=== PATIENT | female | born 1985 | race American Indian/Alaskan Native ===

== ENCOUNTER 2020-05-29 22:37 | Emergency (ER) | payer SELFPAY ==
[2020-05-29] MEDS ORDERED: ACETAMINOPHEN W/CODEINE 300-30 MG TAB PO ONE (23:23)
--- NOTE | 2020-05-29 23:24 | Emergency Department Report ---
ED Extremity Problem HPI - General Chief complaint: Extremity Injury, Upper Stated complaint: LT ARM/WRIST INJURY Source: patient Mode of arrival: Ambulatory Limitations: No Limitations - History of Present Illness Initial comments: This is a 35-year-old female presents to ED complaining of left hand and wrist pain status post falling while skating about 30 minutes prior to arrival to the ED. Patient states she was skating when she accidentally tripped and landed on her left side. Patient is complaining of left hand and wrist pain. She describes pain as throbbing in nature. Minimal swelling. She denies any medical condition or taking any medication. MD Complaint: extremity pain Severity scale (0 -10): 10 - Related Data Previous Rx's Medication Instructions Recorded Last Taken Type Ibuprofen [Motrin 800 MG tab] 800 mg PO Q8HR PRN #30 tablet 05/30/20 Unknown Rx oxyCODONE /ACETAMINOPHEN [Percocet 1 tab PO Q6HR PRN #12 tab 05/30/20 Unknown Rx 5/325 mg] Allergies Allergy/AdvReac Type Severity Reaction Status Date / Time No Known Allergies Allergy Verified 07/31/15 12:03 ED Review of Systems ROS: Stated complaint: LT ARM/WRIST INJURY Other details as noted in HPI Comment: All other systems reviewed and negative ED Past Medical Hx - Past Medical History Previous Medical History?: No Hx Hypertension: No Hx Congestive Heart Failure: No Hx Diabetes: No Hx Deep Vein Thrombosis: No Hx Renal Disease: No Hx Sickle Cell Disease: No Hx Seizures: No Hx Asthma: No Hx COPD: No Hx HIV: No - Surgical History Past Surgical History?: Yes Additional Surgical History: csection - Social History Smoking Status: Never Smoker Substance Use Type: None - Medications Home Medications: Home Medications Medication Instructions Recorded Confirmed Last Taken Type Ibuprofen [Motrin 800 MG tab] 800 mg PO Q8HR PRN #30 tablet 05/30/20 Unknown Rx oxyCODONE /ACETAMINOPHEN [Percocet 1 tab PO Q6HR PRN #12 tab 05/30/20 Unknown Rx 5/325 mg] ED Physical Exam - General Limitations: No Limitations General appearance: alert, in no apparent distress - Head Head exam: Present: atraumatic, normocephalic - Eye Eye exam: Present: normal appearance - ENT ENT exam: Present: mucous membranes moist - Neck Neck exam: Present: normal inspection - Respiratory Respiratory exam: Present: normal lung sounds bilaterally. Absent: respiratory distress - Cardiovascular Cardiovascular Exam: Present: regular rate, normal rhythm. Absent: systolic murmur, diastolic murmur, rubs, gallop - GI/Abdominal GI/Abdominal exam: Present: soft, normal bowel sounds - Extremities Exam Extremities exam: Present: normal inspection, tenderness (To palpation of the left hand and wrist), other (Pain with flexion and extension of the hand. No unusual deformity noted, mild swelling) - Back Exam Back exam: Present: normal inspection, full ROM - Neurological Exam Neurological exam: Present: alert, oriented X3 - Psychiatric Psychiatric exam: Present: normal affect, normal mood - Skin Skin exam: Present: warm, dry, intact, normal color. Absent: rash ED Course Vital Signs 05/29/20 23:22 Temperature 99.2 F Pulse Rate 100 H Respiratory 18 Rate Blood Pressure 115/72 [Left] O2 Sat by Pulse 100 Oximetry ED Medical Decision Making - Radiology Data Radiology results: report reviewed, image reviewed LEFT WRIST 3 VIEW(S) INDICATION / CLINICAL INFORMATION: pain COMPARISON: Left hand x-ray same day FINDINGS: BONES / JOINT(S): Acute mildly displaced fracture of left distal radius with extension into radiocarpal and distal radioulnar joints with mild dorsal angulation. Ulnar styloid appears intact. No significant arthritis. SOFT TISSUES: No significant abnormality. ADDITIONAL FINDINGS: None. Signer Name: Sergio Baez MD Signed: 05/29/2020 11:58 PM Workstation Name: [id number] Transcribed By: Dictated By: Sergio Baez MD Electronically Authenticated By: Sergio Baez MD Signed Date/Time: 05/29/20 3901 - Medical Decision Making 35-year-old female presents with distal radial fracture closed ED course: Pt received 2 tablets of Tylenol 3 in the ED Left hand x-ray ordered. Left hand x-ray shows: See report above, radial fracture Discussed findings with patient. Discussed application of right ulnar gutter splint to be placed. Post-splint evaluation: Capillary refill 2 seconds, patient able to wiggle fingers, neurovascularly intact no loss of sensation. Discussed the patient and orthopedic follow-up in 2-3 days. Referrals given. From follow-up from care physician. Vital signs are normal patient is in no acute or respiratory distress. Patient states understanding all discussed complaint of follow-up. Critical care attestation.: If time is entered above; I have spent that time in minutes in the direct care of this critically ill patient, excluding procedure time. ED Disposition Clinical Impression: Fracture of left distal radius Disposition: TO HOME OR SELFCARE Is pt being admited?: No Does the pt Need Aspirin: No Condition: Stable Instructions: Radial Fracture, Cast or Splint Care, Adult, [id number], Radial Head Fracture, [id number] Additional Instructions: Make sure to follow up with the orthopedic doctor nursing as discussed. Take all your medications as you've been prescribed. If you have any worsening symptoms or develop new symptoms please return to ED i mmediately. Prescriptions: Ibuprofen [Motrin 800 MG tab] 800 mg PO Q8HR PRN #30 tablet PRN Reason: pain oxyCODONE /ACETAMINOPHEN [Percocet 5/325 mg] 1 tab PO Q6HR PRN #12 tab PRN Reason: Pain Referrals: PRIMARY CAREMD [Primary Care Provider] - 3-5 Days SVEN BAPTISTE MD [Staff Physician] - 3-5 Days Forms: Accompanied Note, Work/School Release Form(ED)
[2020-05-29 23:29] VITALS: BP 115/72
--- NOTE | 2020-05-30 00:03 | XRay Report ---
LEFT WRIST 3 VIEW(S) INDICATION / CLINICAL INFORMATION: pain COMPARISON: Left hand x-ray same day FINDINGS: BONES / JOINT(S): Acute mildly displaced fracture of left distal radius with extension into radiocarp al and distal radioulnar joints with mild dorsal angulation. Ulnar styloid appears intact. No signifi cant arthritis. SOFT TISSUES: No significant abnormality. ADDITIONAL FINDINGS: None. Signer Name: Sergio Baez MD Signed: 05/29/2020 11:58 PM Workstation Name: [id number]
--- NOTE | 2020-05-30 00:03 | XRay Report ---
LEFT HAND 3 VIEW(S) INDICATION / CLINICAL INFORMATION: pain COMPARISON: None available. FINDINGS: BONES / JOINT(S): Acute mildly displaced fracture of left distal radial metaphysis with extension int o radiocarpal and distal radioulnar joints with dorsal angulation of distal fracture fragment. Ulnar styloid appears intact. No other fracture of left hand. No significant arthritis. SOFT TISSUES: No significant abnormality. ADDITIONAL FINDINGS: None. Signer Name: Sergio Baez MD Signed: 05/29/2020 11:58 PM Workstation Name: [id number]
[2020-05-30] MEDS ORDERED: IBUPROFEN 800 MG TAB PO ONE (00:05)
== END 2020-05-30 00:59 | disposition home or self-care (01) ==
LOC: ED 22:37
DX: S52.502A Unspecified fracture of the lower end of left radius, initial encounter for closed fracture (principal); Z79.899 Other long term (current) drug therapy; W01.0XXA Fall on same level from slipping, tripping and stumbling without subsequent striking against object, initial encounter; Y93.89 Activity, other specified; Y92.89 Other specified places as the place of occurrence of the external cause; Y99.8 Other external cause status
CPT/HCPCS: 99283